=== PATIENT | male | born 1970 | race Caucasian/White ===

== ENCOUNTER → 2020-12-27 | Outpatient (REF) | payer BC ==
[2020-12-27 11:37] LABS: BASO % 0.4 % (0.0-1.0); EOS # 0.1 10^3/uL (0.0-0.5); EOS % 2.2 % (0.0-3.0); HEMATOCRIT 43.4 % (42.0-52.0); HEMOGLOBIN 14.6 g/dl (13.5-17.5); LYMPH # 1.7 10^3/uL (1.5-5.0); LYMPH % 33.2 % (24.0-44.0); MEAN CORPUSCULAR HEMOGLOBIN 30.4 pg (27.0-33.0); MEAN CORPUSCULAR HGB CONC 33.6 g/dl (32.0-36.5); MEAN CORPUSCULAR VOLUME 90.4 fl (80.0-96.0); MONO # 0.4 10^3/uL (0.0-0.8); MONO % 7.5 % (2.0-8.0); NEUTROPHILS # 2.9 10^3/uL (1.5-8.5); NEUTROPHILS % 56.5 % (36.0-66.0); PLATELET COUNT, AUTOMATED 296 10^3/uL (150-450); WHITE BLOOD COUNT 5.1 10^3/uL (4.0-10.0)
[2020-12-27 11:53] LABS: INR 1.07; PROTHROMBIN TIME 14.1 SECONDS (12.5-14.3)
[2020-12-27 11:54] LABS: PARTIAL THROMBOPLASTIN TIME 32.1 SECONDS (24.2-38.5)
[2020-12-27 12:14] LABS: ALBUMIN 4.3 GM/DL (3.2-5.2); ALT/SGPT 31 U/L (12-78); BILIRUBIN,TOTAL 0.6 MG/DL (0.2-1.0); BLOOD UREA NITROGEN 13 MG/DL (7-18); CALCIUM LEVEL 9.9 MG/DL (8.5-10.1); CARBON DIOXIDE LEVEL 33 MEQ/L (21-32); CHLORIDE LEVEL 107 MEQ/L (98-107); CHOLESTEROL LEVEL 287 MG/DL (<200); CHOLESTEROL RISK RATIO 4.415 (<5); CREATININE FOR GFR 0.86 MG/DL (0.70-1.30); GLOMERULAR FILTRATION RATE > 60.0 (>60); GLUCOSE, FASTING 87 MG/DL (70-100); HDL CHOLESTEROL 65 MG/DL (>40); LDL CHOLESTEROL 200 MG/DL (<100); NON-HDL-C 222 MG/DL; POTASSIUM SERUM 4.7 MEQ/L (3.5-5.1); SODIUM LEVEL 141 MEQ/L (136-145); TOTAL PROTEIN 7.4 GM/DL (6.4-8.2); TRIGLYCERIDES LEVEL 109 MG/DL (<150)
== END ==
LOC: M SFHCCLAY 09:22
PROVIDERS: ATTEND Family Medicine
DX: K64.4 Residual hemorrhoidal skin tags (principal); R10.32 Left lower quadrant pain; E78.2 Mixed hyperlipidemia; K62.5 Hemorrhage of anus and rectum

== ENCOUNTER → 2021-01-05 | Outpatient (CLI) | payer BC ==
[~2021-01-05] MED LIST: BLAC1CAP2 PO; IBUP1TAB5 PO; TUMS500C PO; VITA500075 PO
== END ==
LOC: M LABSMTC 10:38
PROVIDERS: ATTEND Anesthesiology
DX: Z01.812 Encounter for preprocedural laboratory examination (principal); Z20.822 Contact with and (suspected) exposure to COVID-19

== ENCOUNTER 2021-01-10 12:20 | Day surgery (SDC) | payer BC ==
[~2021-01-10] VITALS: Ht 177.8 cm; Wt 81.8 kg
[~2021-01-10 12:20] MED LIST changes: +NS 1,000 ML IV ONE
[2021-01-10] MEDS ORDERED: propofoL 200 MG/20 ML VIAL As Ordered ONE ×2 (14:06→14:09)
--- NOTE | 2021-01-10 14:25 | ROOR ---
Patient Name: Ricardo Villaseñor Procedure Date: 01/10/2021 2:05 PM Date of : 1970 Age: 50 Room: [facility] Gender: Male Note Status: Finalized Procedure: Colonoscopy Indications: Rectal bleeding Providers: Boogie Bennett Jr, MD Referring MD: Javier Taylor MD Requesting Provider: Medicines: Propofol per Anesthesia Complications: No immediate complications. Procedure: Pre-Anesthesia Assessment: - Prior to the procedure, a History and Physical was performed, and patient medications and allergies were reviewed. The patient is competent. The risks and benefits of the procedure and the sedation options and risks were discussed with the patient. All questions were answered and informed consent was obtained. Patient identification and proposed procedure were verified by the physician and the nurse in the pre-procedure area and in the procedure room. Mental Status Examination: alert and oriented. Airway Examination: normal oropharyngeal airway and neck mobility. Respiratory Examination: clear to auscultation. CV Examination: normal. ASA Grade Assessment: II - A patient with mild systemic disease. After reviewing the risks and benefits, the patient was deemed in satisfactory condition to undergo the procedure. The anesthesia plan was to use moderate sedation / analgesia (conscious sedation). Immediately prior to administration of medications, the patient was re-assessed for adequacy to receive sedatives. The heart rate, respiratory rate, oxygen saturations, blood pressure, adequacy of pulmonary ventilation, and response to care were monitored throughout the procedure. The physical status of the patient was re-assessed after the procedure. The Colonoscope was introduced through the anus and advanced to the cecum, identified by appendiceal orifice and ileocecal valve. The colonoscopy was performed without difficulty. The patient tolerated the procedure well. The quality of the bowel preparation was adequate. Findings: The rectum, recto-sigmoid colon, sigmoid colon, descending colon, transverse colon, ascending colon, cecum, appendiceal orifice and ileocecal valve appeared normal. A medium-sized polypoid lesion was found at the anus. The lesion was ulcerated and multi-lobulated. Oozing was present. Biopsies were taken with a cold forceps for histology. Impression: - The rectum, recto-sigmoid colon, sigmoid colon, descending colon, transverse colon, ascending colon, cecum, appendiceal orifice and ileocecal valve are normal. - Polypoid lesion at the anus. Biopsied. Recommendation: - Discharge patient to home (ambulatory). - Return to my office in 1 week. Procedure Code(s): --- Professional --- 44251, Colonoscopy, flexible; with biopsy, single or multiple Diagnosis Code(s): --- Professional --- D49.0, Neoplasm of unspecified behavior of digestive system K62.5, Hemorrhage of anus and rectum CPT copyright 2019 [employer]. All rights reserved. The codes documented in this report are preliminary and upon mobile patrol officer review may be revised to meet current compliance requirements. Boogie Bennett MD Boogie Bennett Jr, MD 01/10/2021 2:25:38 PM Electronically signed by Boogie Bennett Jr, MD Number of Addenda: 0 Note Initiated On: 01/10/2021 2:05 PM Estimated Blood Loss: Estimated blood loss: none.
[2021-01-10 14:44] VITALS: BP 134/84
== END 2021-01-10 14:47 | disposition home or self-care (01) ==
LOC: M OPP 12:20
PROVIDERS: ATTEND Surgery
DX: D23.9 Other benign neoplasm of skin, unspecified (principal); Z88.2 Allergy status to sulfonamides; Z88.8 Allergy status to other drugs, medicaments and biological substances

== ENCOUNTER → 2021-06-13 | Outpatient (REF) | payer BC ==
[~2021-06-13] MED LIST changes: -NS 1,000 ML IV ONE
== END ==
LOC: M SFHCCLAY 10:10
PROVIDERS: ATTEND Family Medicine
DX: Z20.9 Contact with and (suspected) exposure to unspecified communicable disease (principal)